=== PATIENT | female | born 1965 | race Caucasian/White ===

== ENCOUNTER 2016-12-09 09:58 | Emergency (ER) | payer OTHER ==
[~2016-12-09] VITALS: Ht 167.6 cm; Wt 97.8 kg
[~2016-12-09 09:58] MED LIST: ARIPIPRAZOLE5 MG PO; CYCLOBENZAPRINE10 MG PO; HYDROCODON-ACE1 EAC7 PO; LIORESAL10 MG PO; LORTAB 5-325 M1 EACH PO; NAPROXEN500 MG PO; SERTRALINE HCL100 MG PO; ZOLOFT PO
[2016-12-09] MEDS ORDERED: METOPROLOL SUCC50 MG PO (10:23)
[2016-12-09 10:57] LABS: HEMATOCRIT 46.3 % (36.0-46.0); MCH 28.9 PG (29.0-34.0); MCHC 33.9 G/DL (30.0-36.0); MCV 85.3 FL (83-99); MEAN PLAT.VOLUME 9.7 uM^3 (9.5-12.4); PLATELET COUNT 223 K/uL (156-360); RBC DIS.WIDTH-CV 13.6 % (11.8-14.6); RBC DIS.WIDTH-SD 42.2 % (39-53); RED BLOOD COUNT 5.43 M/uL (3.80-5.20); WHITE BLOOD COUNT 11.2 K/uL (4.1-10.2)
[2016-12-09 11:14] LABS: CHLORIDE 109 mEq/L (99-109); SODIUM 142 mEq/L (136-147)
[2016-12-09 11:15] LABS: GLUCOSE 93 mg/dL (70-99)
[2016-12-09 11:17] LABS: ANION GAP 10 MEQ/L (2-14)
[2016-12-09 11:19] LABS: GFR ESTIMATE (CALCULATED) > 59 mL/min/
[2016-12-09 11:20] LABS: UREA NITROGEN (BUN) 18 mg/dL (9-23)
[2016-12-09 11:25] LABS: TROP-I INTERPRETATION NEGATIVE; TROPONIN-I < 0.01 ng/mL (0.0-0.30)
[2016-12-09] MEDS ORDERED: LISINOPRIL20 MG PO (11:33)
[2016-12-09 12:31] VITALS: BP 178/86
== END 2016-12-09 12:31 | disposition home or self-care (01) ==
LOC: EME 09:58
PROVIDERS: Emergency Medicine
DX: I10 Essential (primary) hypertension (principal); F17.200 Nicotine dependence, unspecified, uncomplicated
CPT/HCPCS: 71020; 80048; 84484; 85027; 93005; 99281; 99285

== ENCOUNTER 2016-12-17 12:21 | Emergency (ER) | payer OTHER ==
[~2016-12-17] VITALS: Ht 167.6 cm; Wt 94.0 kg
[~2016-12-17 12:21] MED LIST changes: +LISINOPRIL20 MG PO; +METOPROLOL SUCC50 MG PO
[2016-12-17] MEDS ORDERED: LYRICA100 MG PO (15:51)
[2016-12-17] MEDS ORDERED: PERCOCET 5/31 TABLET PO (15:51)
[2016-12-17 16:21] VITALS: BP 152/95
== END 2016-12-17 16:22 | disposition home or self-care (01) ==
LOC: EME 12:21
DX: G89.18 Other acute postprocedural pain (principal); M25.572 Pain in left ankle and joints of left foot; R20.2 Paresthesia of skin
CPT/HCPCS: 99281; 99283

== ENCOUNTER 2017-03-08 18:03 | Emergency (ER) | payer OTHER ==
[~2017-03-08] VITALS: Ht 167.6 cm; Wt 95.4 kg
[~2017-03-08 18:03] MED LIST changes: +LYRICA100 MG PO; +PERCOCET 5/31 TABLET PO
[2017-03-08] MEDS ORDERED: VALIUM5 MG PO (19:25)
[2017-03-08] MEDS ORDERED: DILAUDID4 MG PO (20:03)
[2017-03-08 20:36] VITALS: BP 123/83
== END 2017-03-08 20:37 | disposition home or self-care (01) ==
LOC: RME 18:03 → EME 18:03 → RME 20:37
DX: G89.18 Other acute postprocedural pain (principal); M25.572 Pain in left ankle and joints of left foot; F17.200 Nicotine dependence, unspecified, uncomplicated; Z88.6 Allergy status to analgesic agent
CPT/HCPCS: 99281; 99283; J2270

== ENCOUNTER 2017-11-15 13:52 | Inpatient (IN) | payer OTHER ==
[~2017-11-15] VITALS: Ht 160 cm; Wt 95.2 kg
[~2017-11-15 13:52] MED LIST changes: +DILAUDID4 MG PO; +METOPROLOL SUCC25 MG PO; -METOPROLOL SUCC50 MG PO; +VALIUM5 MG PO
[2017-11-15 14:59] LABS: HEMATOCRIT 47.6 % (36.0-46.0); HEMOGLOBIN 16.4 G/DL (11.9-15.5); MCH 29.9 PG (29.0-34.0); MCHC 34.5 G/DL (30.0-36.0); MCV 86.9 FL (83-99); PLATELET COUNT 204 K/uL (156-360); RBC DIS.WIDTH-CV 13.7 % (11.8-14.6); RBC DIS.WIDTH-SD 43.8 % (39-53); RED BLOOD COUNT 5.48 M/uL (3.80-5.20); WHITE BLOOD COUNT 11.6 K/uL (4.1-10.2)
[2017-11-15 15:08] LABS: CHLORIDE 113 mEq/L (99-109); POTASSIUM 3.6 mEq/L (3.7-5.4); SODIUM 141 mEq/L (136-147)
[2017-11-15 15:09] LABS: GLUCOSE 129 mg/dL (70-99)
[2017-11-15 15:13] LABS: CREATININE 0.8 mg/dL (0.6-1.3); GFR ESTIMATE (CALCULATED) > 59 mL/min/
[2017-11-15 15:14] LABS: UREA NITROGEN (BUN) 15 mg/dL (9-23)
[2017-11-15] MEDS ORDERED: TRAZODONE HCL50 MG PO (19:58)
[2017-11-15] MEDS ORDERED: PRILOSEC20 MG PO (19:58)
[2017-11-15] MEDS ORDERED: BENZONATATE100 MG PO (20:00)
[2017-11-15] MEDS ORDERED: PREDNISONE20 MG PO (20:01)
[2017-11-15] MEDS ORDERED: DUONEB 2.5-0.5 M3 ML AEROSOL (20:02)
[2017-11-15] MEDS ORDERED: ZITHROMAX250 MG PO (20:02)
[2017-11-16 00:08] VITALS: BP 146/65
[2017-11-16 04:05] VITALS: BP 134/66
[2017-11-16 08:50] VITALS: BP 146/71
[2017-11-16 11:46] LABS: D-DIMER ELISA < 150.00 ng/mLDDU (<230)
[2017-11-16 12:15] VITALS: BP 140/76
[2017-11-16 12:42] LABS: HEMATOCRIT 46.9 % (36.0-46.0); MCHC 34.1 G/DL (30.0-36.0); PLATELET COUNT 236 K/uL (156-360); RBC DIS.WIDTH-CV 13.8 % (11.8-14.6); RBC DIS.WIDTH-SD 44.2 % (39-53); RED BLOOD COUNT 5.33 M/uL (3.80-5.20); WHITE BLOOD COUNT 19.2 K/uL (4.1-10.2)
[2017-11-16 13:04] LABS: ALBUMIN 4.4 G/DL (3.2-4.8); ALKALINE PHOSPHATASE 81 IU/L (3-129); ALT (GPT) 25 IU/L (3-49); AST (GOT) 17 IU/L (2-34); CHLORIDE 111 MEQ/L (99-109); CREATININE 0.9 MG/DL (0.6-1.3); GFR ESTIMATE (CALCULATED) > 59 mL/min/; GLUCOSE 140 mg/dL (70-99); POTASSIUM 3.5 MEQ/L (3.7-5.4); SODIUM 143 MEQ/L (136-147); TOTAL BILIRUBIN 0.7 MG/DL (0.0-1.0); TOTAL PROTEIN 6.7 G/DL (6.4-8.3); UREA NITROGEN (BUN) 15 mg/dL (9-23)
[2017-11-16 16:04] VITALS: BP 162/82
[2017-11-16 23:31] VITALS: BP 144/76
[2017-11-17 06:59] LABS: BASOPHIL (%) 0.1 % (0-1); EOSINOPHIL (%) 0 % (0-5); HEMATOCRIT 45.3 % (36.0-46.0); HEMOGLOBIN 15.1 G/DL (11.9-15.5); IMMATURE GRANULOCYTE (%) 1.1 % (0.0-0.7); LYMPHOCYTE (%) 9.3 % (15-42); MCH 29.3 PG (29.0-34.0); MCHC 33.3 G/DL (30.0-36.0); MCV 87.8 FL (83-99); MONOCYTE (%) 2.4 % (3-12); MONOCYTE COUNT 0.5 K/uL (0-0.8); NEUTROPHIL (%) 87.1 % (45-76); PLATELET COUNT 237 K/uL (156-360); RBC DIS.WIDTH-CV 13.9 % (11.8-14.6); RBC DIS.WIDTH-SD 44.9 % (39-53); RED BLOOD COUNT 5.16 M/uL (3.80-5.20); WHITE BLOOD COUNT 21.8 K/uL (4.1-10.2)
[2017-11-17 07:33] LABS: CHLORIDE 111 MEQ/L (99-109); CREATININE 0.9 MG/DL (0.6-1.3); GFR ESTIMATE (CALCULATED) > 59 mL/min/; GLUCOSE 167 mg/dL (70-99); SODIUM 143 MEQ/L (136-147); UREA NITROGEN (BUN) 19 mg/dL (9-23)
[2017-11-17 07:41] LABS: POTASSIUM 4.5 MEQ/L (3.7-5.4)
[2017-11-17 18:32] VITALS: BP 158/81
[2017-11-17 19:29] VITALS: BP 150/78
[2017-11-17 23:34] VITALS: BP 147/79
[2017-11-18 06:47] LABS: BASOPHIL (%) 0.4 % (0-1); BASOPHIL COUNT 0.1 K/uL (0-0.1); EOSINOPHIL (%) 0 % (0-5); HEMATOCRIT 46.5 % (36.0-46.0); HEMOGLOBIN 15.3 G/DL (11.9-15.5); IMMATURE GRANULOCYTE (%) 1.8 % (0.0-0.7); LYMPHOCYTE (%) 10.7 % (15-42); LYMPHOCYTE COUNT 2.4 K/uL (1.0-2.8); MCH 29.1 PG (29.0-34.0); MCHC 32.9 G/DL (30.0-36.0); MCV 88.6 FL (83-99); MONOCYTE (%) 2.7 % (3-12); MONOCYTE COUNT 0.6 K/uL (0-0.8); NEUTROPHIL (%) 84.4 % (45-76); NEUTROPHIL COUNT 18.7 K/uL (1.8-6.4); PLATELET COUNT 244 K/uL (156-360); RBC DIS.WIDTH-CV 13.7 % (11.8-14.6); RBC DIS.WIDTH-SD 44.7 % (39-53); RED BLOOD COUNT 5.25 M/uL (3.80-5.20); WHITE BLOOD COUNT 22.2 K/uL (4.1-10.2)
[2017-11-18 07:20] LABS: ALKALINE PHOSPHATASE 71 IU/L (3-129); ALT (GPT) 23 IU/L (3-49); AST (GOT) 15 IU/L (2-34); CHLORIDE 107 MEQ/L (99-109); CREATININE 1.1 MG/DL (0.6-1.3); GFR ESTIMATE (CALCULATED) 56 mL/min/; GLUCOSE 156 mg/dL (70-99); POTASSIUM 4.3 MEQ/L (3.7-5.4); SODIUM 141 MEQ/L (136-147); TOTAL BILIRUBIN 0.8 MG/DL (0.0-1.0); TOTAL PROTEIN 6.3 G/DL (6.4-8.3); UREA NITROGEN (BUN) 20 mg/dL (9-23)
[2017-11-18 08:21] VITALS: BP 152/82
[2017-11-18] MEDS ORDERED: SPIRIVA RESPIMAT4 GM IH (08:50)
[2017-11-18] MEDS ORDERED: ADVAIR HFA120 INHALA IH (08:50)
[2017-11-18] MEDS ORDERED: NICOTINE PATCH1 EAC1 TD (08:50)
[2017-11-18] MEDS ORDERED: AMOX TR-K CLV1 EAC4 PO (08:50)
[2017-11-18] MEDS ORDERED: PREDNISONE10 MG PO (08:50)
== END 2017-11-18 10:41 | disposition home or self-care (01) | DRG 189 ==
LOC: EME 13:52 → EDOF 20:09 → 2EAST 20:09 → ENRESERV 20:21 → 2EAST 22:14
PROVIDERS: Emergency Medicine; Hospitalist
PROC: 5A09357 Assistance with Respiratory Ventilation, Less than 24 Consecutive Hours, Continuous Positive Airway Pressure (ICD-10-PCS; principal; 2017-11-15)
DX: J96.01 Acute respiratory failure with hypoxia (principal); J45.51 Severe persistent asthma with (acute) exacerbation; F33.9 Major depressive disorder, recurrent, unspecified; J44.1 Chronic obstructive pulmonary disease with (acute) exacerbation; J44.0 Chronic obstructive pulmonary disease with (acute) lower respiratory infection; E87.6 Hypokalemia; J20.9 Acute bronchitis, unspecified; F17.210 Nicotine dependence, cigarettes, uncomplicated; G47.33 Obstructive sleep apnea (adult) (pediatric); I10 Essential (primary) hypertension; E04.1 Nontoxic single thyroid nodule; T38.0X5A Adverse effect of glucocorticoids and synthetic analogues, initial encounter; F41.9 Anxiety disorder, unspecified; E66.9 Obesity, unspecified; Z87.01 Personal history of pneumonia (recurrent); Z79.51 Long term (current) use of inhaled steroids; Z98.1 Arthrodesis status; Z88.6 Allergy status to analgesic agent; Z68.37 Body mass index [BMI] 37.0-37.9, adult; Z80.0 Family history of malignant neoplasm of digestive organs; Z82.49 Family history of ischemic heart disease and other diseases of the circulatory system
CPT/HCPCS: 71046; 71275; 80048; 80053; 85025; 85027; 85379; 87502; 90686; 93005; 94640; 94640 76; 94644; 94660; 94799; 99202; 99281; 99285; J1650; J2930; J7030